=== PATIENT | female | born 1995 | race Caucasian/White ===

== ENCOUNTER → 2017-07-11 | Emergency (ER) | payer OTHER ==
[~2017-07-11] VITALS: Ht 157.5 cm; Wt 51.3 kg
== END | disposition home or self-care (01) ==
LOC: ER 19:16
DX: B34.9 Viral infection, unspecified (principal)

== ENCOUNTER 2021-11-06 16:52 | Emergency (ER) | payer OTHER ==
[~2021-11-06] VITALS: Ht 157.5 cm; Wt 59.0 kg
[2021-11-06] MEDS ORDERED: ZITHROMAX TRI-500 MG PO (18:43)
[2021-11-06] MEDS ORDERED: MEDROLPACK PO (18:43)
== END 2021-11-06 18:48 | disposition home or self-care (01) ==
LOC: ER 16:52
DX: U07.1 COVID-19 (principal); J06.9 Acute upper respiratory infection, unspecified; Z88.6 Allergy status to analgesic agent